=== PATIENT | male | born 1980 | race Caucasian/White ===

== ENCOUNTER 2018-11-26 15:06 | Inpatient (IN) | payer OTHER ==
[2018-11-26 15:34] VITALS: BMI 26.9
[2018-11-26] MEDS ORDERED: TIZANIDINE HCL 4 MG TABLET PO PRN (19:44)
--- NOTE | 2018-11-26 19:51 | HP ---
COWS - Scale Resting Pulse: 1= [place] 81-100 Sweatin= Chills/Flushing Restless Observation: 1= Difficult to Sit Still Pupil Size: 1= Pupils >than Normal Bone or Joint Aches: 2= Severe Diffuse Aches Runny Nose/ Eye Tearin= Runny Nose/Eyes GI Upset > 30mins: 2= Nausea/Diarrhea Tremor Observation: 0= None Yawning Observation: 1= 1-2x During Session Anxiety or Irritability: 1=Feels Anxious/Irritable Goose Flesh Skin: 0=Smooth Skin COWS Score: 12 CIWA Score Nausea/Vomitin Muscle Tremors: 1-None Visible, but [place] Anxiety: 3 Agitation: 0-Normal Activity Paroxysmal Sweats: 2 Orientation: 0-Oriented Tacttile Disturbances: 2-Mild Itch/Numbness/Burn Auditory Disturbances: 1-Very Mild Visual Disturbances: 0-None Headache: 0-None Present CIWA-Ar Total Score: 12 - Admission Criteria OASAS Guidelines: Admission for Medically Managed Detox: Requires at least one of the followin. CIWA greater than 12 2. Seizures within the past 24 hours 3. Delirium tremens within the past 24 hours 4. Hallucinations within the past 24 hours 5. Acute intervention needed for co occurring medical disorder 6. Acute intervention needed for co occurring psychiatric disorder 7. Severe withdrawal that cannot be handled at a lower level of care (continued vomiting, continued diarrhea, abnormal vital signs) requiring intravenous medication and/or fluids 8. Patient presents the following: CIWA greater than 12 Admission Criteria Met: Admission criteria met Admission ROS [facility] - [facility] Chief Complaint: " I want to change my life" Allergies/Adverse Reactions: Allergies Allergy/AdvReac Type Severity Reaction Status Date / Time No Known Drug Allergies Allergy Verified 11/26/18 18:43 SHELLFISH AdvReac Uncoded 11/26/18 18:43 History of Present Illness: 38 yo male with hx of heroin, KVNG and IV heroin dependence is here seeking detox. Patient reports was attending 12 step program and recently relapse. Last detox approx two years ago, does not recall the name of the facility. PMHX: IDDM , Neuropathy, Chronic back pain, GERD, Chronic Rhinitis, PTSD, Anxiety, Depression, ADHD. Denies suicide / homicide ideation. Reports past hx of seizure r/t ETOH last episode 2015. Longest period of sobriety one year and nine months. Exam Limitations: No Limitations - Ebola screening Have you traveled outside of the country in the last 21 days: No Have you had contact with anyone from an Ebola affected area: No Have you been sick,other than usual withdrawal symptoms: No - Review of Systems Constitutional: Chills, Changes in sleep, Other (weight gain appx 5 lbs) EENT: reports: Nose Congestion, Other (runny nose) Respiratory: reports: No Symptoms reported Cardiac: reports: Other (reports chest pain with panic attacks) GI: reports: Diarrhea, Nausea, Vomiting, Indigestion : reports: No Symptoms Reported Musculoskeletal: reports: Back Pain, Joint Pain Integumentary: reports: Other (healing abcess on the right hand and left wrist, multiple track cabrales bilateral forearms) Neuro: reports: Numbness, Tingling (right lower extremity) Endocrine: reports: Increased Thirst Hematology: reports: No Symptoms Reported Psychiatric: reports: Orientated x3, Anxious, Depressed Other Systems: Reviewed and Negative Patient History - Patient Medical History Hx Anemia: Yes (B12 IM LAST DOSE 04/13/16) Hx Asthma: Yes (VENTOLINE) Hx Chronic Obstructive Pulmonary Disease (COPD): No Hx Cancer: No Hx Cardiac Disorders: No Hx Congestive Heart Failure: No Hx Hypertension: No Hx Hypercholesterolemia: No Hx Pacemaker: No HX Cerebrovascular Accident: No Hx Seizures: Yes (LAST EPISODE 2011) Hx Dementia: No Hx Diabetes: Yes (IDDM) Hx Gastrointestinal Disorders: No Hx Liver Disease: No Hx Genitourinary Disorders: No Hx Sexually Transmitted Disorders: No Hx Renal Disease (ESRD): No Hx Thyroid Disease: No Hx Human Immunodeficiency Virus (HIV): No (LAST 10/16/14) Hx Hepatitis C: No Hx Depression: Yes (ANXIETY,DEPRESSION,PTSD) Hx Suicide Attempt: No Hx Bipolar Disorder: No Hx Schizophrenia: No - Patient Surgical History Past Surgical History: Yes Hx Neurologic Surgery: No Hx Cataract Extraction: No Hx Cardiac Surgery: No Hx Lung Surgery: No Hx Breast Surgery: No Hx Breast Biopsy: No Hx Abdominal Surgery: Yes (REPAIR OF UMBILICAL HERNIA 20 YEARS AGO) Hx Appendectomy: No Hx Cholecystectomy: No Hx Genitourinary Surgery: No Hx Orthopedic Surgery: No Other Surgical History: DRAINAGE OF ABSCESS OF BOTH FOREARM, 2013 Anesthesia Reaction: No - PPD History Previous Implant?: No Documented Results: Negative w/proof Date: 04/29/16 PPD to be Administered?: Yes - Smoking Cessation Smoking history: Current every day smoker Have you smoked in the past 12 months: Yes Aproximately how many cigarettes per day: 20 Cigars Per Day: 0 Hx Chewing Tobacco Use: No Initiated information on smoking cessation: Yes 'Breaking Loose' booklet given: 11/26/18 - Substance & Tx. History Hx Alcohol Use: Yes Hx Substance Use: Yes Substance Use Type: Alcohol, Cocaine, Heroin Hx Substance Use Treatment: Yes (Last detox approx two years ago, does not recall the name of the facility) - Substances Abused Alcohol Route: Oral Frequency: Daily Amount used: beer- 1 six pack Age of first use: 11 Date of Last Use: 11/25/18 Heroin Route: Injection Frequency: Daily Amount used: 7 bags Age of first use: 33 Date of Last Use: 11/25/18 Cocaine Route: Injection Frequency: Daily Amount used: 6 bags Age of first use: 34 Date of Last Use: 11/25/18 Family Disease History - Family Disease History Family Disease History: [place]: Father, Other: Mother Admission Physical Exam [facility] - Vital Signs Vital Signs: Vital Signs - 24 hr 11/26/18 15:32 Temperature 97.2 F L Pulse Rate 86 Respiratory 20 Rate Blood Pressure 122/67 - Physical General Appearance: Yes: Appropriately Dressed, Mild Distress, Thin, Sweating, Anxious HEENTM: Yes: EOMI, Hearing grossly Normal, Normal ENT Inspection, Normocephalic , Normal Voice, IVY, Pharynx Normal, Tm's normal Respiratory: Yes: Chest Non-Tender, Lungs Clear, Normal Breath Sounds Neck: Yes: No masses,lesions,Nodules Breast: Yes: Breast Exam Deferred Cardiology: Yes: Regular Rhythm, Regular Rate Abdominal: Yes: Normal Bowel Sounds, Non Tender, Flat, Soft Genitourinary: Yes: Within Normal Limits Back: Yes: Normal Inspection Musculoskeletal: Yes: full range of Motion, Gait Steady, Pelvis Stable, Back pain Extremities: Yes: Normal Capillary Refill, Normal Inspection, Normal Range of Motion, Non-Tender, Tremors 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, Fully Oriented, Alert, Motor Strength 5/5, Normal Response, Depressed Affect Integumentary: Yes: Normal Color, Warm, Moist, Track Cabrales, Other (healing abcess on the right hand and left wrist, multiple track cabrales bilateral forearms ) Lymphatic: Yes: Within Normal Limits - Diagnostic (1) Alcohol dependence with withdrawal Current Visit: Yes Status: Acute (2) Opioid dependence with withdrawal Current Visit: Yes Status: Acute (3) GERD (gastroesophageal reflux disease) Current Visit: No Status: Chronic Qualifiers: Esophagitis presence: without esophagitis Qualified Code(s): K21.9 - Gastro -esophageal reflux disease without esophagitis Comment: PROTONIX (4) Nicotine dependence Current Visit: Yes Status: Chronic Qualifiers: Nicotine product type: cigarettes Substance use status: in withdrawal Qualified Code(s): F17.213 - Nicotine dependence, cigarettes, with withdrawal Comment: NICOTINE PATCHE AND GUM (5) Neuropathy Current Visit: Yes Status: Acute (6) Abscess Current Visit: Yes Status: Acute Cleared for Admission S - Detox or Rehab [facility] Level of Care: Medically Managed Detox Regimen/Protocol: Methadone/Valium [facility] Breath Alcohol Content Breath Alcohol Content: 0 Urine Drug Screen - Results Drug Screen Negative: No Urine Drug Screen Results: KVNG-Cocaine, BZO-Benzodiazepines, FEN-Fentanyl Inpatient Rehab Admission - Rehab Decision to Admit Inpatient rehab admission?: No
[2018-11-26] MEDS ORDERED: MAGNESIUM HYDROX 2400MG/30ML ORAL SUSPENSION 30 ML CUP PO PRN (19:58)
[2018-11-26] MEDS ORDERED: P-EPHED 60MG/TRIPROLIDI 2.5MG TABLET PO PRN (19:58)
[2018-11-26] MEDS ORDERED: MENTHOL/PHENOL 1 EACH UD MM PRN (19:58)
[2018-11-26] MEDS ORDERED: IBUPROFEN 400 MG TABLET (FP) PO PRN (19:58)
[2018-11-26] MEDS ORDERED: LOPERAMIDE HCL 2 MG CAPSULE PO PRN (19:58)
[2018-11-26] MEDS ORDERED: diazePAM 5 MG TABLET PO ONE (19:58)
[2018-11-26] MEDS ORDERED: guaiFENesin/D-METHORPHAN HB 10 ML UNIT-DOSE CUPS PO PRN (19:58)
[2018-11-26] MEDS ORDERED: ACETAMINOPHEN 325 MG TABLET (FP) PO PRN (19:58)
[2018-11-26] MEDS ORDERED: MAGNESIUM CITRATE 300 ML BOTTLE PO PRN (19:58)
[2018-11-26] MEDS ORDERED: METHADONE HCL 10 MG TABLET (FOR DETOX USE ONLY) PO ONE ×2 (21:00→23:00)
[2018-11-26] MEDS ORDERED: MELATONIN 5 MG TABLETS PO PRN (22:00)
[2018-11-26] MEDS ORDERED: PATIENT'S OWN MEDICATION (NON-FORMULARY) (Insulin Glargine,Hum.Rec.Anlog 20 UNITS) SQ SCH (22:00)
[2018-11-26] MEDS ORDERED: INSULIN (NOVOLOG) ASPART 100 UNITS/ML 10ML VIAL ONE (22:28)
[2018-11-26] MEDS: diazePAM 5 MG TABLET PO SCH (22:30)
[2018-11-26] MEDS: CEPHALEXIN MONOHYDRATE 500 MG CAPSULE (UD) PO SCH (22:30)
[2018-11-26] MEDS: INSULIN (LEVEMIR) 100 UNITS/ML UNITS SQ SCH (22:31)
[2018-11-26] MEDS: BACITRACIN 0.9 GM PACKET TP SCH (22:31)
[2018-11-26] MEDS: INSULIN SLIDING SCALE (NOVOLOG) 1 VIAL SQ SCH (22:32)
[2018-11-26] MEDS: THIAMINE HCL 100 MG TABLET (FP) PO SCH (22:32)
[2018-11-27] MEDS: MAG HYDROX/AL HYDROX/SIMETH 30 ML UNIT-DOSE CUP PO PRN ×2 (00:02→23:34)
[2018-11-27] MEDS: diazePAM 5 MG TABLET PO SCH ×3 (06:04→22:03)
[2018-11-27] MEDS: CYCLOBENZAPRINE HCL 10 MG TABLET (FP) PO PRN (06:28)
[2018-11-27] MEDS: IBUPROFEN 400 MG TABLET (FP) PO PRN ×3 (06:29→22:04)
[2018-11-27] MEDS ORDERED: INSULIN (NOVOLOG) ASPART 100 UNITS/ML 10ML VIAL ONE ×5 (07:32→22:02)
[2018-11-27] MEDS: INSULIN SLIDING SCALE (NOVOLOG) 1 VIAL SQ SCH ×4 (07:37→22:03)
[2018-11-27] MEDS: diazePAM 5 MG TABLET PO PRN ×3 (07:39→19:21)
[2018-11-27] MEDS ORDERED: PANTOPRAZOLE 40 MG TABLET (FP) PO SCH (10:00)
[2018-11-27] MEDS ORDERED: METHADONE HCL 10 MG TABLET (FOR DETOX USE ONLY) PO SCH (10:00)
--- NOTE | 2018-11-27 10:03 | PN ---
[facility] CIWA - CIWA Score Nausea/Vomitin-No Nausea/No Vomiting Muscle Tremors: 4-Moderate,w/Arms Extend Anxiety: 3 Agitation: 3 Paroxysmal Sweats: 3 Orientation: 0-Oriented Tacttile Disturbances: 0-None Auditory Disturbances: 0-None Visual Disturbances: 0-None Headache: 0-None Present CIWA-Ar Total Score: 13 [facility] COWS - Scale Resting Pulse: 0= [place] 80 or Below Sweatin=Flushed/Facial Moisture Restless Observation: 1= Difficult to Sit Still Pupil Size: 0= Normal to Room Light Bone or Joint Aches: 2= Severe Diffuse Aches Runny Nose/ Eye Tearin= Runny Nose/Eyes GI Upset > 30mins: 0= None Tremor Observation of Outstretched Hands: 2= Slight Tremor Visible Yawning Observation: 2= >3x During Session Anxiety or Irritability: 2=Irritable/Anxious Goose Flesh Skin: 0=Smooth Skin COWS Score: 13 S Progress Note (SOAP) Subjective: agitation anxiety sweats shakes irritable i want my protonix switched to zantac i want nicotine patch and gum Objective: 11/27/18 10:02 Vital Signs Temperature 97.7 F 11/27/18 07:05 Pulse Rate 64 11/27/18 07:05 Respiratory Rate 18 11/27/18 07:05 Blood Pressure 100/51 L 11/27/18 07:05 O2 Sat by Pulse Oximetry (%) Laboratory Tests 11/26/18 11/26/18 11/27/18 18:33 22:22 06:03 POC Glucometer 303 228 209 rest of labs pending aaox3 ambulating no acute distress Assessment: 11/27/18 10:03 withdrawal sx Plan: continue detox increase fluids labs pending nicotine patch/gum ordered zantac ordered as per pt request
[2018-11-27] MEDS: BACITRACIN 0.9 GM PACKET TP SCH ×2 (10:46→22:03)
[2018-11-27] MEDS: PRENATAL VITAMINS W/ FOLIC ACID TABLET (FP) PO SCH (10:47)
[2018-11-27] MEDS: CEPHALEXIN MONOHYDRATE 500 MG CAPSULE (UD) PO SCH ×4 (10:47→22:02)
[2018-11-27] MEDS: NICOTINE 21 MG/24 HOURS TOPICAL PATCH TD SCH (10:48)
[2018-11-27] MEDS: NICOTINE POLACRILEX 4 MG GUM BUC PRN ×3 (10:51→22:08)
[2018-11-27] MEDS: RANITIDINE HCL 150 MG TABLET (FP) PO SCH ×2 (10:51→22:02)
[2018-11-27 10:56] LABS: ALBUMIN 3.6 g/dl (3.4-5.0); ALK PHOS 86 U/L (45-117); ANION GAP 9 MMOL/L (8-16); BILIRUBIN,TOTAL 0.5 mg/dL (0.2-1); BLOOD UREA NITROGEN 14 mg/dL (7-18); CALCIUM 8.9 mg/dL (8.5-10.1); CHLORIDE 102 mmol/L (98-107); CO2 25 mmol/L (21-32); CREATININE 0.9 mg/dL (0.55-1.3); GLUCOSE,RANDOM 281 mg/dL (74-106); POTASSIUM 4.1 mmol/L (3.5-5.1); SGOT/AST 9 U/L (15-37); SGPT/ALT 18 U/L (13-61); SODIUM 136 mmol/L (136-145); TOT PROT 6.8 g/dl (6.4-8.2)
[2018-11-27 11:35] LABS: HEMATOCRIT 38.4 % (35.4-49); HEMOGLOBIN 13.3 GM/dL (11.7-16.9); MCH 30.8 pg (25.7-33.7); MCHC 34.8 g/dl (32.0-35.9); MEAN CELL VOLUME 88.6 fl (80-96); MEAN PLT VOLUME 9.1 fl (7.5-11.1); PLATELET COUNT 288 K/MM3 (134-434); RBC 4.33 M/mm3 (4.00-5.60); RDW 13.3 % (11.9-15.9); WHITE BLOOD COUNT 6.7 K/mm3 (4.0-10.0)
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
[2018-11-27] MEDS: INSULIN (NOVOLOG) ASPART 100 UNITS/ML 10ML VIAL SQ SCH ×2 (12:26→17:24)
[2018-11-27] MEDS: GABAPENTIN 400 MG CAPSULE (FP) PO PRN (14:16)
[2018-11-27] MEDS ORDERED: Insulin (LOG) Aspart 100 UNITS/ML VIAL SQ ONE (17:15)
[2018-11-27] MEDS ORDERED: INSULIN SLIDING SCALE (NOVOLOG) 1 VIAL SQ SCH ×2 (18:01→22:00)
[2018-11-27] MEDS ORDERED: Insulin (LOG) Aspart 100 UNITS/ML VIAL SQ STA (18:25)
[2018-11-27] MEDS: QUEtiapine FUMARATE 50 MG TABLET PO SCH (22:03)
[2018-11-27] MEDS: INSULIN (LEVEMIR) 100 UNITS/ML UNITS SQ SCH (22:03)
[2018-11-27] MEDS: THIAMINE HCL 100 MG TABLET (FP) PO SCH (22:03)
[2018-11-28] MEDS ORDERED: INSULIN (NOVOLOG) ASPART 100 UNITS/ML 10ML VIAL ONE ×3 (06:05→23:34)
[2018-11-28] MEDS: INSULIN SLIDING SCALE (NOVOLOG) 1 VIAL SQ SCH (07:38)
[2018-11-28] MEDS ORDERED: INSULIN (NOVOLOG) ASPART 100 UNITS/ML 10ML VIAL SQ ONE (08:53)
[2018-11-28] MEDS: CEPHALEXIN MONOHYDRATE 500 MG CAPSULE (UD) PO SCH ×4 (10:13→22:15)
[2018-11-28] MEDS: NICOTINE 21 MG/24 HOURS TOPICAL PATCH TD SCH (10:14)
[2018-11-28] MEDS: diazePAM 5 MG TABLET PO SCH ×2 (10:14→22:16)
[2018-11-28] MEDS: BACITRACIN 0.9 GM PACKET TP SCH ×2 (10:14→22:16)
[2018-11-28] MEDS: PRENATAL VITAMINS W/ FOLIC ACID TABLET (FP) PO SCH (10:14)
[2018-11-28] MEDS: RANITIDINE HCL 150 MG TABLET (FP) PO SCH ×2 (10:14→22:15)
[2018-11-28] MEDS: METHADONE HCL 5 MG TABLET (FOR DETOX USE ONLY) PO SCH (10:14)
[2018-11-28] MEDS: NICOTINE POLACRILEX 4 MG GUM BUC PRN ×4 (10:17→22:18)
--- NOTE | 2018-11-28 11:08 | PN ---
S Progress Note Note: a second order written for BGM and insulin coverage as per pt request. Pt will be following the new order and pt agrees.
--- NOTE | 2018-11-28 11:10 | PN ---
[facility] CIWA - CIWA Score Nausea/Vomitin-No Nausea/No Vomiting Muscle Tremors: 3 Anxiety: 3 Agitation: 3 Paroxysmal Sweats: 2 Orientation: 0-Oriented Tacttile Disturbances: 0-None Auditory Disturbances: 0-None Visual Disturbances: 0-None Headache: 0-None Present CIWA-Ar Total Score: 11 S COWS - Scale Resting Pulse: 0= [place] 80 or Below Sweatin=Flushed/Facial Moisture Restless Observation: 1= Difficult to Sit Still Pupil Size: 0= Normal to Room Light Bone or Joint Aches: 2= Severe Diffuse Aches Runny Nose/ Eye Tearin= None GI Upset > 30mins: 0= None Tremor Observation of Outstretched Hands: 2= Slight Tremor Visible Yawning Observation: 1= 1-2x During Session Anxiety or Irritability: 2=Irritable/Anxious Goose Flesh Skin: 0=Smooth Skin COWS Score: 10 S Progress Note (SOAP) Subjective: sweats shakes interrupted sleep i need my insulin and blood glucose regimen ordered appropriately. Objective: 11/28/18 11:12 Vital Signs Temp 97.3 F L 11/28/18 09:23 Pulse 76 11/28/18 09:23 Resp 18 11/28/18 09:23 BP 108/65 11/28/18 09:23 Pulse Ox Laboratory Tests 11/26/18 11/26/18 11/27/18 18:33 22:22 06:03 WBC RBC Hgb Hct MCV MCH MCHC RDW Plt Count MPV Sodium Potassium Chloride Carbon Dioxide Anion Gap BUN Creatinine Creat Clearance w eGFR POC Glucometer 303 228 209 Random Glucose Calcium Total Bilirubin AST ALT Alkaline Phosphatase Total Protein Albumin RPR Titer 11/27/18 11/27/18 11/27/18 07:00 07:00 07:00 WBC 6.7 RBC 4.33 Hgb 13.3 Hct 38.4 MCV 88.6 MCH 30.8 MCHC 34.8 RDW 13.3 Plt Count 288 MPV 9.1 Sodium 136 Potassium 4.1 Chloride 102 Carbon Dioxide 25 Anion Gap 9 BUN 14 Creatinine 0.9 Creat Clearance w eGFR > 60 POC Glucometer Random Glucose 281 H Calcium 8.9 Total Bilirubin 0.5 AST 9 L ALT 18 Alkaline Phosphatase 86 Total Protein 6.8 Albumin 3.6 RPR Titer Nonreactive 02/11/27/18 11/27/18 11:01 16:39 17:57 WBC RBC Hgb Hct MCV MCH MCHC RDW Plt Count MPV Sodium Potassium Chloride Carbon Dioxide Anion Gap BUN Creatinine Creat Clearance w eGFR POC Glucometer 484 > 600 528 Random Glucose Calcium Total Bilirubin AST ALT Alkaline Phosphatase Total Protein Albumin RPR Titer 11/27/18 11/28/18 21:54 06:01 WBC RBC Hgb Hct MCV MCH MCHC RDW Plt Count MPV Sodium Potassium Chloride Carbon Dioxide Anion Gap BUN Creatinine Creat Clearance w eGFR POC Glucometer 287 423 Random Glucose Calcium Total Bilirubin AST ALT Alkaline Phosphatase Total Protein Albumin RPR Titer aaox3 ambulating no acute distress Assessment: 11/28/18 11:13 withdrawal sx Plan: continue detox increase fluids insulin and BGM ordered as per pt request.
[2018-11-28] MEDS: INSULIN (NOVOLOG) ASPART 100 UNITS/ML 10ML VIAL SQ SCH ×2 (11:44→17:05)
[2018-11-28] MEDS: diazePAM 5 MG TABLET PO PRN ×2 (14:10→18:34)
[2018-11-28] MEDS: IBUPROFEN 400 MG TABLET (FP) PO PRN (17:04)
[2018-11-28] MEDS: GABAPENTIN 400 MG CAPSULE (FP) PO PRN (18:34)
[2018-11-28] MEDS: INSULIN (LEVEMIR) 100 UNITS/ML UNITS SQ SCH (22:16)
[2018-11-28] MEDS: QUEtiapine FUMARATE 50 MG TABLET PO SCH (22:16)
[2018-11-28] MEDS: THIAMINE HCL 100 MG TABLET (FP) PO SCH (22:16)
[2018-11-28] MEDS: INSULIN (NOVOLOG) ASPART 100 UNITS/ML 10ML VIAL SQ PRN (23:37)
[2018-11-29] MEDS ORDERED: INSULIN (NOVOLOG) ASPART 100 UNITS/ML 10ML VIAL ONE ×4 (06:55→22:47)
[2018-11-29] MEDS: INSULIN (NOVOLOG) ASPART 100 UNITS/ML 10ML VIAL SQ SCH ×3 (07:37→17:07)
[2018-11-29] MEDS: BACITRACIN 0.9 GM PACKET TP SCH ×2 (10:40→22:40)
[2018-11-29] MEDS: RANITIDINE HCL 150 MG TABLET (FP) PO SCH ×2 (10:40→22:41)
[2018-11-29] MEDS: METHADONE HCL 5 MG TABLET (FOR DETOX USE ONLY) PO SCH (10:40)
[2018-11-29] MEDS: CEPHALEXIN MONOHYDRATE 500 MG CAPSULE (UD) PO SCH ×3 (10:40→17:07)
[2018-11-29] MEDS: PRENATAL VITAMINS W/ FOLIC ACID TABLET (FP) PO SCH (10:40)
[2018-11-29] MEDS: NICOTINE 21 MG/24 HOURS TOPICAL PATCH TD SCH (10:41)
[2018-11-29] MEDS: NICOTINE POLACRILEX 4 MG GUM BUC PRN ×3 (10:41→17:11)
[2018-11-29] MEDS: diazePAM 5 MG TABLET PO SCH ×2 (10:41→22:40)
--- NOTE | 2018-11-29 13:50 | PN ---
[facility] Progress Note (SOAP) Subjective: pt states doing well, going to rehab at discharge. O: Vital Signs - 24 hr 11/28/18 11/28/18 11/29/18 17:56 22:41 00:30 Temperature 98.1 F 96.3 F L Pulse Rate 68 72 Respiratory 18 18 18 Rate Blood Pressure 126/62 105/63 11/29/18 11/29/18 11/29/18 03:30 08:48 09:47 Temperature 96.4 F L 96.4 F L Pulse Rate 71 66 Respiratory 18 18 18 Rate Blood Pressure 111/56 L 105/67 11/29/18 13:45 Temperature 97.7 F Pulse Rate 73 Respiratory 16 Rate Blood Pressure 125/60 Laboratory Tests 11/26/18 11/26/18 11/27/18 18:33 22:22 06:03 WBC RBC Hgb Hct MCV MCH MCHC RDW Plt Count MPV Sodium Potassium Chloride Carbon Dioxide Anion Gap BUN Creatinine Creat Clearance w eGFR POC Glucometer 303 228 209 Random Glucose Calcium Total Bilirubin AST ALT Alkaline Phosphatase Total Protein Albumin RPR Titer 11/27/18 11/27/18 11/27/18 07:00 07:00 07:00 WBC 6.7 RBC 4.33 Hgb 13.3 Hct 38.4 MCV 88.6 MCH 30.8 MCHC 34.8 RDW 13.3 Plt Count 288 MPV 9.1 Sodium 136 Potassium 4.1 Chloride 102 Carbon Dioxide 25 Anion Gap 9 BUN 14 Creatinine 0.9 Creat Clearance w eGFR > 60 POC Glucometer Random Glucose 281 H Calcium 8.9 Total Bilirubin 0.5 AST 9 L ALT 18 Alkaline Phosphatase 86 Total Protein 6.8 Albumin 3.6 RPR Titer Nonreactive 11/27/18 11/27/18 11/27/18 11:01 16:39 17:57 WBC RBC Hgb Hct MCV MCH MCHC RDW Plt Count MPV Sodium Potassium Chloride Carbon Dioxide Anion Gap BUN Creatinine Creat Clearance w eGFR POC Glucometer 484 > 600 528 Random Glucose Calcium Total Bilirubin AST ALT Alkaline Phosphatase Total Protein Albumin RPR Titer 11/27/18 11/28/18 11/28/18 21:54 06:01 11:38 WBC RBC Hgb Hct MCV MCH MCHC RDW Plt Count MPV Sodium Potassium Chloride Carbon Dioxide Anion Gap BUN Creatinine Creat Clearance w eGFR POC Glucometer 287 423 81 Random Glucose Calcium Total Bilirubin AST ALT Alkaline Phosphatase Total Protein Albumin RPR Titer 11/28/18 11/28/18 11/29/18 16:41 22:07 06:17 WBC RBC Hgb Hct MCV MCH MCHC RDW Plt Count MPV Sodium Potassium Chloride Carbon Dioxide Anion Gap BUN Creatinine Creat Clearance w eGFR POC Glucometer 468 429 186 Random Glucose Calcium Total Bilirubin AST ALT Alkaline Phosphatase Total Protein Albumin RPR Titer 11/29/18 10:45 WBC RBC Hgb Hct MCV MCH MCHC RDW Plt Count MPV Sodium Potassium Chloride Carbon Dioxide Anion Gap BUN Creatinine Creat Clearance w eGFR POC Glucometer 257 Random Glucose Calcium Total Bilirubin AST ALT Alkaline Phosphatase Total Protein Albumin RPR Titer fluctuating BGM a/p Continue detox protocol> to rehab after d/c, pt to discuss with counselor
[2018-11-29] MEDS: diazePAM 5 MG TABLET PO PRN ×2 (14:29→18:35)
[2018-11-29] MEDS: GABAPENTIN 400 MG CAPSULE (FP) PO PRN ×2 (15:26→22:41)
[2018-11-29] MEDS: IBUPROFEN 400 MG TABLET (FP) PO PRN (17:11)
[2018-11-29] MEDS: THIAMINE HCL 100 MG TABLET (FP) PO SCH (22:41)
[2018-11-29] MEDS: QUEtiapine FUMARATE 50 MG TABLET PO SCH (22:41)
[2018-11-29] MEDS: CYCLOBENZAPRINE HCL 10 MG TABLET (FP) PO PRN (22:41)
[2018-11-29] MEDS: INSULIN (NOVOLOG) ASPART 100 UNITS/ML 10ML VIAL SQ PRN (22:42)
[2018-11-29] MEDS: INSULIN (LEVEMIR) 100 UNITS/ML UNITS SQ SCH (22:43)
[2018-11-30] MEDS: NICOTINE POLACRILEX 4 MG GUM BUC PRN ×5 (02:33→14:13)
[2018-11-30] MEDS: IBUPROFEN 400 MG TABLET (FP) PO PRN ×2 (06:47→16:57)
[2018-11-30] MEDS: GABAPENTIN 400 MG CAPSULE (FP) PO PRN ×3 (06:48→20:57)
[2018-11-30] MEDS ORDERED: INSULIN (NOVOLOG) ASPART 100 UNITS/ML 10ML VIAL ONE ×2 (06:52→11:56)
[2018-11-30] MEDS: INSULIN (NOVOLOG) ASPART 100 UNITS/ML 10ML VIAL SQ SCH ×3 (07:52→17:00)
[2018-11-30] MEDS ORDERED: METHADONE HCL 10 MG TABLET (FOR DETOX USE ONLY) PO SCH (10:00)
[2018-11-30] MEDS ORDERED: diazePAM 5 MG TABLET PO SCH (10:00)
[2018-11-30] MEDS: BACITRACIN 0.9 GM PACKET TP SCH ×2 (10:30→22:21)
[2018-11-30] MEDS: PRENATAL VITAMINS W/ FOLIC ACID TABLET (FP) PO SCH (10:30)
[2018-11-30] MEDS: RANITIDINE HCL 150 MG TABLET (FP) PO SCH ×2 (10:30→22:21)
[2018-11-30] MEDS: NICOTINE 21 MG/24 HOURS TOPICAL PATCH TD SCH (10:31)
[2018-11-30] MEDS: INSULIN SLIDING SCALE (NOVOLOG) 1 VIAL SQ SCH ×3 (11:58→22:39)
--- NOTE | 2018-11-30 13:27 | PN ---
[facility] Progress Note Note: PATIENT CONTINUES WITH DETOX REGIMEN FOR HEROIN DEPENDENCE. PATIENT STATES HE FEELS BETTER. CONCERNED ABOUT ELEVATED BLOOD SUGAR LEVELS. FOR D/C IN AM. Vital Signs Temperature 96.8 F L 11/30/18 09:36 Pulse Rate 73 11/30/18 09:36 Respiratory Rate 18 11/30/18 09:36 Blood Pressure 114/65 11/30/18 09:36 O2 Sat by Pulse Oximetry (%) Laboratory Tests 11/26/18 11/26/18 11/27/18 18:33 22:22 06:03 WBC RBC Hgb Hct MCV MCH MCHC RDW Plt Count MPV Sodium Potassium Chloride Carbon Dioxide Anion Gap BUN Creatinine Creat Clearance w eGFR POC Glucometer 303 228 209 Random Glucose Calcium Total Bilirubin AST ALT Alkaline Phosphatase Total Protein Albumin RPR Titer 11/27/18 11/27/18 11/27/18 07:00 07:00 07:00 WBC 6.7 RBC 4.33 Hgb 13.3 Hct 38.4 MCV 88.6 MCH 30.8 MCHC 34.8 RDW 13.3 Plt Count 288 MPV 9.1 Sodium 136 Potassium 4.1 Chloride 102 Carbon Dioxide 25 Anion Gap 9 BUN 14 Creatinine 0.9 Creat Clearance w eGFR > 60 POC Glucometer Random Glucose 281 H Calcium 8.9 Total Bilirubin 0.5 AST 9 L ALT 18 Alkaline Phosphatase 86 Total Protein 6.8 Albumin 3.6 RPR Titer Nonreactive 11/27/18 11/27/18 11/27/18 11:01 16:39 17:57 WBC RBC Hgb Hct MCV MCH MCHC RDW Plt Count MPV Sodium Potassium Chloride Carbon Dioxide Anion Gap BUN Creatinine Creat Clearance w eGFR POC Glucometer 484 > 600 528 Random Glucose Calcium Total Bilirubin AST ALT Alkaline Phosphatase Total Protein Albumin RPR Titer 11/27/18 11/28/18 11/28/18 21:54 06:01 11:38 WBC RBC Hgb Hct MCV MCH MCHC RDW Plt Count MPV Sodium Potassium Chloride Carbon Dioxide Anion Gap BUN Creatinine Creat Clearance w eGFR POC Glucometer 287 423 81 Random Glucose Calcium Total Bilirubin AST ALT Alkaline Phosphatase Total Protein Albumin RPR Titer 11/28/18 11/28/18 11/29/18 16:41 22:07 06:17 WBC RBC Hgb Hct MCV MCH MCHC RDW Plt Count MPV Sodium Potassium Chloride Carbon Dioxide Anion Gap BUN Creatinine Creat Clearance w eGFR POC Glucometer 468 429 186 Random Glucose Calcium Total Bilirubin AST ALT Alkaline Phosphatase Total Protein Albumin RPR Titer 11/29/18 11/29/18 11/29/18 10:45 16:38 22:39 WBC RBC Hgb Hct MCV MCH MCHC RDW Plt Count MPV Sodium Potassium Chloride Carbon Dioxide Anion Gap BUN Creatinine Creat Clearance w eGFR POC Glucometer 257 358 312 Random Glucose Calcium Total Bilirubin AST ALT Alkaline Phosphatase Total Protein Albumin RPR Titer 11/30/18 11/30/18 06:40 11:51 WBC RBC Hgb Hct MCV MCH MCHC RDW Plt Count MPV Sodium Potassium Chloride Carbon Dioxide Anion Gap BUN Creatinine Creat Clearance w eGFR POC Glucometer 302 338 Random Glucose Calcium Total Bilirubin AST ALT Alkaline Phosphatase Total Protein Albumin RPR Titer PE: ALERT AND ORIENTED X 3 SKIN WARM AND DRY EYES + PERRLA, EOMS INTACT BL EXT FULL ROM, NO VISIBLE EDEMA AMB AD PARTHA A/P WITHDRAWAL SX DM WITH HYPERGLYCEMIA WILL CONTINUE DETOX FOR D/C IN AM, PATIENT HAS MEDS IN BELONGINGS WILL ADJUST SLIDING SCALE COVERAGE AND ADD INSULIN 4 UNITS TID AC CONTINUE TO MONITOR CLINICALLY
[2018-11-30] MEDS: CYCLOBENZAPRINE HCL 10 MG TABLET (FP) PO PRN (14:12)
[2018-11-30] MEDS: hydrOXYzine HCL 25 MG TABLET (FP) PO PRN (16:56)
[2018-11-30] MEDS: QUEtiapine FUMARATE 50 MG TABLET PO SCH (22:21)
[2018-11-30] MEDS: THIAMINE HCL 100 MG TABLET (FP) PO SCH (22:21)
[2018-11-30] MEDS: INSULIN (LEVEMIR) 100 UNITS/ML UNITS SQ SCH (22:41)
[2018-12-01] MEDS ORDERED: METHADONE HCL 5 MG TABLET (FOR DETOX USE ONLY) PO SCH (06:00)
[2018-12-01] MEDS ORDERED: INSULIN (NOVOLOG) ASPART 100 UNITS/ML 10ML VIAL ONE ×2 (06:40→16:27)
[2018-12-01] MEDS: INSULIN SLIDING SCALE (NOVOLOG) 1 VIAL SQ SCH ×3 (08:10→16:44)
[2018-12-01] MEDS: INSULIN (NOVOLOG) ASPART 100 UNITS/ML 10ML VIAL SQ SCH ×4 (08:10→16:43)
--- NOTE | 2018-12-01 08:50 | DS ---
[facility] Detox Discharge Summary Admission Date: 11/26/18 Discharge Date: 12/01/18 - History Present History: Alcohol Dependence, Opioid Dependence, Sedative Dependence - Physical Exam Results Vital Signs: Vital Signs Temperature 98.2 F 11/30/18 21:51 Pulse Rate 67 11/30/18 21:51 Respiratory Rate 16 12/01/18 03:30 Blood Pressure 115/75 11/30/18 21:51 O2 Sat by Pulse Oximetry (%) - Treatment Hospital Course: Detox Protocol Followed, Detoxed Safely, Responded well, Discharged Condition Good, Rehab Referral Accepted - Medication Discharge Medications: Ambulatory Orders Cephalexin Monohydrate [Keflex -] 500 mg PO QID #28 capsule 10/24/14 Ibuprofen [Motrin -] 800 mg PO TID #30 tablet 10/24/14 Fluoxetine HCl [Prozac -] 40 mg PO DAILY #30 capsule 10/25/14 Mirtazapine [Remeron -] 45 mg PO HS #30 tablet 10/25/14 Quetiapine Fumarate [Seroquel] 300 mg PO HS #30 tablet 10/25/14 Cyanocobalamin (Vitamin B-12) [Physicians Ez Use B-12] 1,000 mcg IJ MONTHLY Doxepin HCl [Sinequan -] 10 mg PO HS 04/27/16 Gabapentin [Neurontin] 800 mg PO Q6H PRN 04/27/16 Insulin Glargine,Hum.rec.anlog [Lantus (nf)] 15 units SQ HS 04/27/16 Magnesium Oxide 400 mg PO DAILY 04/27/16 Pantoprazole Sodium [Protonix -] 40 mg PO DAILY 04/27/16 Tizanidine HCl [Zanaflex (Nf)] 4 mg PO TID PRN 04/27/16 Insulin Glargine,Hum.rec.anlog [Basaglar Kwikpen U-100] 20 unit SQ HS 11/26/18 Insulin Lispro [Admelog Solostar] 60 unit SQ TID 11/26/18 - Diagnosis (1) Alcohol dependence with withdrawal Current Visit: Yes Status: Chronic Qualifiers: Complication of substance-induced condition: uncomplicated Qualified Code(s ): F10.230 - Alcohol dependence with withdrawal, uncomplicated (2) Neuropathy Current Visit: Yes Status: Chronic (3) Opioid dependence with withdrawal Current Visit: Yes Status: Chronic (4) Substance-induced sleep disorder Current Visit: Yes Status: Acute (5) Nicotine dependence Current Visit: Yes Status: Chronic Qualifiers: Nicotine product type: cigarettes Substance use status: uncomplicated Qualified Code(s): F17.210 - Nicotine dependence, cigarettes, uncomplicated (6) ADHD Current Visit: No Status: Chronic (7) Anxiety and depression Current Visit: No Status: Chronic (8) GERD (gastroesophageal reflux disease) Current Visit: No Status: Chronic Qualifiers: Esophagitis presence: without esophagitis Qualified Code(s): K21.9 - Gastro -esophageal reflux disease without esophagitis (9) PTSD (post-traumatic stress disorder) Current Visit: No Status: Chronic (10) Sedative, hypnotic or anxiolytic dependence with withdrawal, uncomplicated Current Visit: Yes Status: Chronic - AMA Did Patient Leave Against Medical Advice: No (referred to oksana davidson)
[2018-12-01] MEDS: PRENATAL VITAMINS W/ FOLIC ACID TABLET (FP) PO SCH (09:40)
[2018-12-01] MEDS: NICOTINE 21 MG/24 HOURS TOPICAL PATCH TD SCH (09:40)
[2018-12-01] MEDS: BACITRACIN 0.9 GM PACKET TP SCH ×2 (09:40→22:31)
[2018-12-01] MEDS: RANITIDINE HCL 150 MG TABLET (FP) PO SCH ×2 (09:41→22:28)
[2018-12-01] MEDS: NICOTINE POLACRILEX 4 MG GUM BUC PRN ×2 (09:42→20:27)
[2018-12-01] MEDS: GABAPENTIN 400 MG CAPSULE (FP) PO PRN ×3 (09:42→22:28)
--- NOTE | 2018-12-01 15:29 | PN ---
[facility] Progress Note Note: pt has completed detox however d/t patient co-mobity, lack of rehab bed and urge to use and for him to relapse; pt has the opportunity to stay until tomorrow for a rehab bed availability.
[2018-12-01] MEDS: hydrOXYzine HCL 25 MG TABLET (FP) PO PRN (20:26)
[2018-12-01] MEDS: QUEtiapine FUMARATE 50 MG TABLET PO SCH (22:28)
[2018-12-01] MEDS: THIAMINE HCL 100 MG TABLET (FP) PO SCH (22:29)
[2018-12-01] MEDS: INSULIN (LEVEMIR) 100 UNITS/ML UNITS SQ SCH (22:29)
[2018-12-02] MEDS: NICOTINE POLACRILEX 4 MG GUM BUC PRN (05:42)
[2018-12-02] MEDS ORDERED: INSULIN (NOVOLOG) ASPART 100 UNITS/ML 10ML VIAL ONE (06:13)
[2018-12-02] MEDS: INSULIN (NOVOLOG) ASPART 100 UNITS/ML 10ML VIAL SQ SCH (07:26)
[2018-12-02] MEDS: INSULIN SLIDING SCALE (NOVOLOG) 1 VIAL SQ SCH (07:27)
--- NOTE | 2018-12-02 08:51 | DS ---
[facility] Detox Discharge Summary Admission Date: 11/26/18 Discharge Date: 12/02/18 - History Present History: Alcohol Dependence, Opioid Dependence, Sedative Dependence - Physical Exam Results Vital Signs: Vital Signs Temperature 97.7 F 12/02/18 06:00 Pulse Rate 72 12/02/18 06:00 Respiratory Rate 18 12/02/18 06:00 Blood Pressure 105/57 L 12/02/18 06:00 O2 Sat by Pulse Oximetry (%) - Treatment Hospital Course: Detox Protocol Followed, Detoxed Safely, Responded well, Discharged Condition Good, Rehab Referral Accepted - Medication Discharge Medications: Ambulatory Orders Ibuprofen [Motrin -] 800 mg PO TID #30 tablet 10/24/14 Fluoxetine HCl [Prozac -] 40 mg PO DAILY #30 capsule 10/25/14 Mirtazapine [Remeron -] 45 mg PO HS #30 tablet 10/25/14 Quetiapine Fumarate [Seroquel] 300 mg PO HS #30 tablet 10/25/14 Cyanocobalamin (Vitamin B-12) [Physicians Ez Use B-12] 1,000 mcg IJ MONTHLY Doxepin HCl [Sinequan -] 10 mg PO HS 04/27/16 Gabapentin [Neurontin] 800 mg PO Q6H PRN 04/27/16 Magnesium Oxide 400 mg PO DAILY 04/27/16 Pantoprazole Sodium [Protonix -] 40 mg PO DAILY 04/27/16 Tizanidine HCl [Zanaflex (Nf)] 4 mg PO TID PRN 04/27/16 Insulin Glargine,Hum.rec.anlog [Basaglar Kwikpen U-100] 20 unit SQ HS 11/26/18 Insulin Lispro [Admelog Solostar] 60 unit SQ TID 11/26/18 - Diagnosis (1) Alcohol dependence with withdrawal Current Visit: Yes Status: Chronic Qualifiers: Complication of substance-induced condition: uncomplicated Qualified Code(s ): F10.230 - Alcohol dependence with withdrawal, uncomplicated (2) Neuropathy Current Visit: Yes Status: Chronic (3) Opioid dependence with withdrawal Current Visit: Yes Status: Chronic (4) Substance-induced sleep disorder Current Visit: Yes Status: Acute (5) Nicotine dependence Current Visit: Yes Status: Chronic Qualifiers: Nicotine product type: cigarettes Substance use status: uncomplicated Qualified Code(s): F17.210 - Nicotine dependence, cigarettes, uncomplicated (6) ADHD Current Visit: No Status: Chronic (7) Anxiety and depression Current Visit: No Status: Chronic (8) GERD (gastroesophageal reflux disease) Current Visit: Yes Status: Chronic Qualifiers: Esophagitis presence: without esophagitis Qualified Code(s): K21.9 - Gastro -esophageal reflux disease without esophagitis (9) PTSD (post-traumatic stress disorder) Current Visit: No Status: Chronic (10) Sedative, hypnotic or anxiolytic dependence with withdrawal, uncomplicated Current Visit: Yes Status: Chronic - AMA Did Patient Leave Against Medical Advice: No (referred to rehab/ [facility] inpatient rehab)
[2018-12-02] MEDS: PRENATAL VITAMINS W/ FOLIC ACID TABLET (FP) PO SCH (10:00)
[2018-12-02] MEDS: RANITIDINE HCL 150 MG TABLET (FP) PO SCH (10:00)
[2018-12-02] MEDS: BACITRACIN 0.9 GM PACKET TP SCH (10:00)
[2018-12-02 10:01] VITALS: BP 116/69; PULSE 71; TEMP 96.1
[2018-12-02] MEDS: GABAPENTIN 400 MG CAPSULE (FP) PO PRN (10:02)
== END 2018-12-02 10:09 | disposition home or self-care (01) | DRG 897 ==
LOC: YASAS 15:06 → Y6N 21:57
PROVIDERS: ADMIT Surgery; ATTEND Surgery
PROC: HZ2ZZZZ Detoxification Services for Substance Abuse Treatment (ICD-10-PCS; principal; 2018-11-26)
DX: F11.23 Opioid dependence with withdrawal (principal); F19.282 Other psychoactive substance dependence with psychoactive substance-induced sleep disorder; F13.230 Sedative, hypnotic or anxiolytic dependence with withdrawal, uncomplicated; F10.230 Alcohol dependence with withdrawal, uncomplicated; F17.210 Nicotine dependence, cigarettes, uncomplicated; F43.10 Post-traumatic stress disorder, unspecified; F90.9 Attention-deficit hyperactivity disorder, unspecified type; F41.8 Other specified anxiety disorders; F32.9 Major depressive disorder, single episode, unspecified; K21.9 Gastro-esophageal reflux disease without esophagitis; E10.65 Type 1 diabetes mellitus with hyperglycemia; Z79.4 Long term (current) use of insulin; Z86.2 Personal history of diseases of the blood and blood-forming organs and certain disorders involving the immune mechanism; Z86.69 Personal history of other diseases of the nervous system and sense organs
CPT/HCPCS: 36415; 80053; 82962; 85027; 86593